=== PATIENT | female | born 1995 | race Caucasian/White ===

== ENCOUNTER 2022-12-05 07:26 | Inpatient (IN) | payer OTHER ==
[~2022-12-05] VITALS: Ht 149.9 cm; Wt 76.8 kg
[2022-12-05] VITALS (9 sets, daily range): BP systolic 116–133; BP diastolic 58–80
[2022-12-05] MEDS ORDERED: PRENMIS3 PO (07:55)
[2022-12-05] MEDS ORDERED: HOME MED LIST COMPLETE! XX SCH (07:55)
[2022-12-05] MEDS ORDERED: LACTATED RINGER'S 1000 ML IV STA (08:04)
[2022-12-05] MEDS ORDERED: METHYLERGONOVINE MALEATE 0.2MG/ML 1ML VIAL IM PRN (08:05)
[2022-12-05] MEDS ORDERED: TRANEXAMIC ACID INJection 1,000 MG in NS 100 ML IV PRN (08:05)
[2022-12-05] MEDS ORDERED: CARBOPROST TROMETHAMINE 250 MCG/ML AMP IM PRN (08:05)
[2022-12-05] MEDS ORDERED: LIDOCAINE 1% MDV 20ML VIAL INFIL PRN (08:05)
[2022-12-05] MEDS ORDERED: OXYTOCIN DRIP 30 UNITS in IV 1 EA IV PRN ×4 (08:05)
[2022-12-05] MEDS: LR 1,000 ML IV SCH (08:51)
[2022-12-05 08:59] LABS: HEMATOCRIT 33.9 % (36.0-47.0); HEMOGLOBIN 11.7 g/dl (12.0-15.5); MEAN CORPUSCULAR HEMOGLOBIN 33.2 pg (27.0-33.0); MEAN CORPUSCULAR HGB CONC 34.5 g/dl (32.0-36.5); MEAN CORPUSCULAR VOLUME 96.3 fl (80.0-96.0); PLATELET COUNT, AUTOMATED 132 10^3/uL (150-450); RED BLOOD COUNT 3.52 10^6/uL (4.00-5.40); WHITE BLOOD COUNT 5.2 10^3/uL (4.0-10.0)
[2022-12-05] MEDS ORDERED: miSOPROStol 50MCG 1/2 TABLET SL ONE (09:45)
[2022-12-05] MEDS ORDERED: miSOPROStol 50MCG 1/2 TABLET SL PRN (14:20)
[2022-12-05] MEDS ORDERED: NALBUPHINE HCL 10 MG/ML 1ML AMP IV ONE (22:30)
[2022-12-06] VITALS (14 sets, daily range): BP systolic 115–140; BP diastolic 61–83
[2022-12-06] MEDS ORDERED: FENTANYL/ROPIVACAINE/NACL BAG 100 ML EPIDURAL SCH (03:00)
[2022-12-06] MEDS ORDERED: LR 500 ML IV PRN (03:00)
[2022-12-06] MEDS ORDERED: ePHEDrine SULFATE 25 MG/5 ML(5MG/ML) SYRINGE IVP PRN (03:00)
[2022-12-06] MEDS ORDERED: diphenhydrAMINE 50MG/ML VIAL IV PRN (03:00)
[2022-12-06] MEDS ORDERED: EPIDURAL/PCA KEYS XX PRN (03:00)
[2022-12-06] MEDS ORDERED: NALOXONE INJ 0.4MG/1ML VIAL IV PRN (03:00)
[2022-12-06] MEDS ORDERED: ONDANSETRON 4MG 2ML VIAL IV PRN ×2 (03:00→14:05)
[2022-12-06] MEDS: LR 1,000 ML IV SCH ×2 (05:03→19:04)
[2022-12-06] MEDS ORDERED: ceFAZolin SOD 2 GM in IV 1 EA IV ONE (12:15)
[2022-12-06] MEDS ORDERED: AZITHROMYCIN INJ 500 MG, VIAL MATE ADAPTER 1 EACH in NS 250 ML IV ONE (12:15)
[2022-12-06] MEDS ORDERED: BICITRA 30ML SOLN UDC PO ONE (12:15)
[2022-12-06] MEDS ORDERED: BUPIVACAINE HCL 0.25% 10ML VIAL SC ONE (12:30)
[2022-12-06] MEDS ORDERED: ONDANSETRON 4MG 2ML VIAL As Ordered ONE (12:55)
[2022-12-06] MEDS ORDERED: OXYTOCIN 30UNITS IN 0.9% NaCl 500ML IV BAG As Ordered ONE ×2 (12:55→14:06)
[2022-12-06] MEDS ORDERED: PHENYLephrine 500MCG 5ML (100MCG/ML) SYRINGE As Ordered ONE (13:00)
[2022-12-06 13:29] LABS: CORD GAS ABE A -2.7; CORD GAS ABE V -2.9; CORD GAS HCO3 A 25.4 MMOL/L; CORD GAS HCO3 V 23.4 MMOL/L; CORD GAS O2 SAT V 43.3 %; CORD GAS PCO2 A 56.9 mmHg; CORD GAS PCO2 V 46.4 mmHg; CORD GAS PH A 7.267 UNITS; CORD GAS PH V 7.321 UNITS; CORD GAS PO2 V 19.1 mmHg; CORD GAS SBC V 20.7 MMOL/L; CORD GAS TCO2 A 27.1 MMOL/L; CORD GAS TCO2 V 24.8 MMOL/L
[2022-12-06] MEDS ORDERED: MORPHINE PRES-FREE INJ 10 MG/10 ML VIAL As Ordered ONE (13:31)
[2022-12-06] MEDS ORDERED: MEPERIDINE 50 MG/ML 1ML VIAL As Ordered ONE (13:49)
[2022-12-06] MEDS ORDERED: OXYTOCIN DRIP 30 UNITS in IV 1 EA IV SCH (14:05)
[2022-12-06] MEDS ORDERED: RHOGAM 300MCG (1500IU) INJ IM SCH (14:05)
[2022-12-06] MEDS ORDERED: PROMETHAZINE 25 MG TAB PO PRN (14:05)
[2022-12-06] MEDS ORDERED: SIMETHICONE 80MG CHEW TAB PO PRN (14:05)
[2022-12-06] MEDS ORDERED: METHYLERGONOVINE MALEATE 0.2MG/ML 1ML VIAL IM PRN (14:05)
[2022-12-06] MEDS ORDERED: oxyCODONE 5MG TAB PO PRN ×2 (14:05)
[2022-12-06] MEDS ORDERED: KETOROLAC 60MG 2ML VIAL As Ordered ONE (14:06)
[2022-12-06] MEDS: ACETAMINOPHEN 500 MG TAB PO SCH ×2 (16:21→21:55)
[2022-12-06] MEDS: KETOROLAC 30 MG/ML 1ML VIAL IV SCH (19:32)
[2022-12-07] MEDS: LR 1,000 ML IV SCH ×4 (00:57→22:05)
[2022-12-07 02:09] VITALS: BP 113/56
[2022-12-07] MEDS: KETOROLAC 30 MG/ML 1ML VIAL IV SCH ×2 (02:37→08:16)
[2022-12-07] MEDS: ACETAMINOPHEN 500 MG TAB PO SCH ×4 (04:17→21:39)
[2022-12-07 05:56] VITALS: BP 104/54
[2022-12-07 07:46] LABS: HEMATOCRIT 27.7 % (36.0-47.0); MEAN CORPUSCULAR HEMOGLOBIN 33.9 pg (27.0-33.0); MEAN CORPUSCULAR VOLUME 96.9 fl (80.0-96.0); PLATELET COUNT, AUTOMATED 120 10^3/uL (150-450); RED BLOOD COUNT 2.86 10^6/uL (4.00-5.40); WHITE BLOOD COUNT 10.9 10^3/uL (4.0-10.0)
[2022-12-07 07:47] LABS: HEMOGLOBIN 9.7 g/dl (12.0-15.5)
[2022-12-07] MEDS: PRENATAL VITAMINS CHEWABLE TABLET PO SCH (08:16)
[2022-12-07 10:00] VITALS: BP 120/58
[2022-12-07 14:00] VITALS: BP 136/80
[2022-12-07] MEDS: IBUPROFEN 800 MG TAB PO SCH ×2 (15:26→23:53)
[2022-12-07 17:00] VITALS: BP 118/60
[2022-12-07 22:00] VITALS: BP 117/68
[2022-12-08 01:50] VITALS: BP 115/57
[2022-12-08] MEDS: ACETAMINOPHEN 500 MG TAB PO SCH ×2 (04:44→10:50)
[2022-12-08] MEDS ORDERED: OXYC-517 PO (05:51)
[2022-12-08] MEDS ORDERED: ACET-683 PO (05:51)
[2022-12-08] MEDS ORDERED: IBUP80TA PO (05:51)
[2022-12-08 06:00] VITALS: BP 133/81
[2022-12-08] MEDS: PRENATAL VITAMINS CHEWABLE TABLET PO SCH (08:18)
[2022-12-08] MEDS: IBUPROFEN 800 MG TAB PO SCH (08:20)
[2022-12-08] MEDS ORDERED: MEASLES,MUMPS,RUBELLA VACCINE INJ (MMR-II) SC.IMMUN ONE (09:00)
[2022-12-08 10:00] VITALS: BP 124/71
== END 2022-12-08 15:27 | disposition home or self-care (01) | DRG 773 ==
LOC: M LDI 07:30 → M OBS 12-06 15:31
PROVIDERS: ADMIT Advanced Practice Midwife; ATTEND Advanced Practice Midwife
PROC: 3E0DXGC Introduction of Other Therapeutic Substance into Mouth and Pharynx, External Approach (ICD-10-PCS; 2022-12-05)
PROC: 10D00Z1 Extraction of Products of Conception, Low, Open Approach (ICD-10-PCS; principal; 2022-12-06 12:18)
DX: O48.0 Post-term pregnancy (principal); Z37.0 Single live birth; Z3A.41 41 weeks gestation of pregnancy; O32.4XX0 Maternal care for high head at term, not applicable or unspecified

== ENCOUNTER → 2023-03-24 | Outpatient (CLI) | payer OTHER ==
[~2023-03-24] MED LIST: ACET-683 PO; IBUP80TA PO; OXYC-517 PO; PRENMIS3 PO
== END ==
LOC: M WHC 07:14
PROVIDERS: ATTEND Obstetrics & Gynecology
DX: N63.10 Unspecified lump in the right breast, unspecified quadrant (principal); N60.01 Solitary cyst of right breast

== ENCOUNTER 2025-01-30 15:39 | Outpatient (CLI) | payer OTHER ==
[~2025-01-30] VITALS: Ht 152.4 cm; Wt 72.8 kg
[2025-01-30 16:00] VITALS: BP 112/58
[2025-02-01] MEDS ORDERED: PERCOCET PO (13:15)
[2025-02-01] MEDS ORDERED: COLA100C5 PO (13:15)
[2025-02-01] MEDS ORDERED: IBUP80TA PO (13:15)
== END 2025-01-30 16:45 | disposition home or self-care (01) ==
LOC: M LDO 15:39
PROVIDERS: ATTEND Advanced Practice Midwife
DX: O28.8 Other abnormal findings on antenatal screening of mother (principal); O40.3XX0 Polyhydramnios, third trimester, not applicable or unspecified; O34.211 Maternal care for low transverse scar from previous cesarean delivery; O99.333 Smoking (tobacco) complicating pregnancy, third trimester; F17.218 Nicotine dependence, cigarettes, with other nicotine-induced disorders; Z3A.39 39 weeks gestation of pregnancy
CPT/HCPCS: 59025; G0463